=== PATIENT | female | born 2000 | race Caucasian/White ===

== ENCOUNTER 2022-10-04 15:53 | Observation (INO) | payer OTHER, SELFPAY ==
[2022-10-04] VITALS (9 sets, daily range): BP systolic 110–132; BP diastolic 70–92; PULSE 97–123; RESP 16–38; TEMP 36.6–37.1; O2SAT 94–100; BMI 29.3
--- NOTE | ~2022-10-04 | CT_ITS ---
EXAMINATION: CTA chest PE protocol DATE: 10/04/2022 17:37 INDICATION: Right-sided pleuritic chest pain, tachycardia and dyspnea TECHNIQUE: Computed tomography (CT) pulmonary angiogram of the chest was performed with 100 mL Omnipa que-350 intravenous contrast. Additional 3D reconstructions utilizing coronal maximum intensity proje ction (MIP) were performed. Automated exposure control and iterative reconstruction technique were em ployed. The dose-length product was 253.43 mGy-cm. COMPARISON: None FINDINGS: Excellent contrast opacification of the pulmonary arteries. There is mild streak and minimal respirat ory motion artifact yielding diagnostic quality study which demonstrates no pulmonary embolism. There multiple scattered bilateral subcentimeter pulmonary nodules, the largest measuring 8 mm in the left lower lobe, 7 mm in the lingula and with additional 6 mm nodules in the bilateral upper and lower lo bes. No pulmonary edema or pleural effusion. Heart size is normal. No pericardial effusion. Thoracic aorta is normal in caliber with no dissection. No pathologically enlarged thoracic lymphadenopathy. V isualized upper abdomen and bones are unremarkable. IMPRESSION: 1. No pulmonary embolism. 2. Multiple scattered bilateral pulmonary nodules the largest measuring up to 6-8 mm which given dina ent age are most likely infectious/inflammatory in etiology. Reviewed, dictated and finalized at location A. IMPRESSION: 1. No pulmonary embolism. 2. Multiple scattered bilateral pulmonary nodules the largest measuring up to 6 -8 mm which given patient age are most likely infectious/inflammatory in etiolo gy.
--- NOTE | 2022-10-04 16:33 | ECG_ITS ---
Measurements Intervals [place] Rate: 108 P: 58 WI: 134 QRS: 59 QRSD: 81 T: 50 QT: 309 QTc: 415 Interpretive Statements SINUS TACHYCARDIA ABNORMAL RHYTHM ECG NO PREVIOUS ECG AVAILABLE FOR COMPARISON Electronically Signed On 10-04-2022 22:19:28 CDT by Agnieszka Clancy M.D.
--- NOTE | 2022-10-04 16:34 | ED.SOB ---
HPI - SOB/Dyspnea General Chief Complaint: Shortness of Breath/Dyspnea Stated Complaint: dyspnea Time Seen by Provider: 10/04/22 16:06 History of Present Illness HPI Narrative: Patient is a 22-year-old female presenting with chest pain and dyspnea. Patient states that she woke from sleep yesterday with right-sided pleuritic chest pain. States that it feels difficult to take a big breath and when she does so she has severe pain in her right upper back that radiates to the left side. States that she has been very short of breath even with mild exertion. She denies recent travel, surgeries, hormone use. Denies leg swelling or prior DVT/PE. Denies lightheadedness, fevers, headache, abdominal pain, nausea or vomiting, diarrhea. Does report nasal congestion for several days. Related Data Allergies Allergy/AdvReac Type Severity Reaction Status Date / Time strawberry AdvReac Difficulty Verified 10/05/22 01:14 Swallowing vancomycin AdvReac Redness of Verified 10/04/22 23:55 Skin Review of Systems Review of Systems: All systems reviewed & are unremarkable except as noted in HPI and below PMFSH Surgical History Surgical History (Updated 10/05/22 @ 00:06 by Judy Villar NP) No pertinent past surgical history Family History Family History (Updated 10/04/22 @ 20:24 by Judy Villar NP) Father Heart disease Grandparent Cerebrovascular accident MDS (myelodysplastic syndrome) Social History Social History (Updated 10/05/22 @ 00:07 by Judy Villar NP) Social History: She lives with family. She works at [employer]. She is single and has no children Code status full code Smoking status: Never smoker Alcohol intake: never Substance use: never Substance use type: does not use Lack of Transportation: No Lack of Food: Never True Current Housing: I Have Housing Concerned About Future Housing: No Difficulty Paying Gas/Electric Bills: No Difficulty Paying for Meds: No Currently Unemployed: No Education: High School Diploma/GED Difficulty w/ Childcare or Family Care: No Spiritual care concerns: No Exam Narrative: GENERAL: Well-appearing, well-nourished, and in no acute distress. HEAD: Normocephalic, atraumatic. EYES: PERRLA and EOMI. ENT: Nares clear, no rhinorrhea or epistaxis. Mucous membranes moist. NECK: Supple. CHEST: Clear to auscultation. No respiratory distress. Mildly tachypneic HEART: Regular rate and rhythm. No murmur heard. Normal peripheral pulses. ABDOMEN: Soft, nontender, nondistended EXTREMITIES: Normal range of motion. No edema. SKIN: Warm, dry, no rash. NEURO: No focal deficits. Alert and oriented x3. PSYCH: Normal mood and affect. Course Vital Signs Vital signs: Vital Signs Temperature 98.7 F 10/04/22 15:55 Pulse Rate 123 H 10/04/22 15:55 Respiratory Rate 10/04/22 15:55 Blood Pressure 132/75 10/04/22 15:55 Pulse Oximetry 100 10/04/22 15:55 Oxygen Delivery Room Air 10/04/22 15:55 Temperature 96.6 F L 10/06/22 14:00 Pulse Rate 88 10/06/22 14:35 Respiratory Rate 20 10/06/22 14:35 Blood Pressure 108/65 10/06/22 14:00 Pulse Oximetry 99 10/06/22 14:24 Oxygen Delivery Room Air 10/06/22 14:24 MDM - SOB/Dyspnea MDM Narrative Medical decision making narrative: Patient is a 22-year-old female presenting with pleuritic chest pain and dyspnea. On arrival, patient is tachycardic in the 120s. Normotensive and saturating well on room air. Exam remarkable for the above. EKG per my interpretation shows sinus tachycardia, normal axis and intervals, no ST elevations or depressions. Blood work with leukocytosis. CT PE shows no evidence of pulmonary embolus but there are multiple pulmonary nodules concerning for infectious versus inflammatory processes. Patient is negative for COVID-19 and influenza. Patient has been covered with IV antibiotics. Fluids are ongoing. Unclear exactly what is causing t
[2022-10-04] MEDS: KETOROLAC 15 MG/ML VIAL (*BKC) IV PUSH (16:52)
[2022-10-04] MEDS: SODIUM CHLORIDE 0.9% IV 1,000 ML 999 ML IV CONT (16:53)
[2022-10-04 17:03] LABS: Basophils Percent Auto 0.3 % (0.2-1.2); Eosinophils Absolute Auto 0.1 K/mm3 (0-0.3); Hematocrit 39.8 % (37.0-47.0); Hemoglobin 13.4 g/dL (12.0-15.0); Immature Granulocyte Absolute 0.04 K/mm3 (0.00-0.031); Immature Granulocyte Percent A 0.3 % (0-0.5); Lymphocytes Absolute Auto 1.41 K/mm3 (0.9-3.2); Mean Corpuscular HGB Conc 33.7 g/dl (32-36); Mean Corpuscular Hemoglobin 28.2 pg (26-34); Mean Corpuscular Volume 83.6 fl (80-100); Mean Platelet Volume 9.7 fl (7.4-10.4); Monocytes Absolute Auto 0.8 K/mm3 (0.1-0.6); Monocytes Percent Auto 6.8 % (2.6-8.5); Neutrophils Absolute Auto 9.4 K/mm3 (1.3-6.7); Neutrophils Percent Auto 79.6 % (45.5-73.1); Platelet Count Result 276 k/mm3 (150-375); Red Blood Count 4.76 M/mm3 (4.2-5.4); Red Cell Distribution Width 13.2 % (11.5-14.5); White Blood Count 11.8 K/mm3 (4.5-10.0)
[2022-10-04 17:15] LABS: Alanine Aminotransferase 20 U/L (6-35); Albumin Level 4.6 g/dL (3.5-5.1); Alkaline Phosphatase 96 U/L (38-126); Anion Gap 10 mmol/L (8-16); Aspartate Amino Transferase 23 U/L (14-36); Bilirubin,Total 0.6 mg/dL (0.2-1.3); Blood Urea Nitrogen 11 mg/dL (7-17); Calcium 9.5 mg/dL (8.4-10.2); Carbon Dioxide 25 mmol/L (22-30); Chloride 103 mmol/L (98-107); Estimated Glomerular Filt Rate > 60; Glucose 100 mg/dL (65-110); Potassium 3.9 mmol/L (3.4-5.0); Sodium 138 mmol/L (137-145)
[2022-10-04 17:26] LABS: Troponin I < 0.012 ng/mL (0.000-0.034)
[2022-10-04 17:38] LABS: Influenza A QL RT-PCR Negative (Negative); Influenza B QL RT-PCR Negative (Negative); SARS-CoV-2 RNA PCR Negative
[2022-10-04] MEDS: HEIGHT NEEDED FOR VANCO DOSING 1 EACH XX (19:02)
--- NOTE | 2022-10-04 19:13 | PC.NURSE ---
Patient report given to BROOK Retana. All questions answered and care of patient transferred.
--- NOTE | 2022-10-04 20:22 | PM.IMHP ---
H&P: HPI History of Present Illness Date/Time: 10/04/22 20:22 Chief Complaint: Shortness of breath Narrative: This is a 22-year-old female patient who presented with chest pain and dyspnea. The patient states that she woke up from sleep yesterday with some right-sided pleuritic chest pain. The patient stated was difficult to take a deep breath and it was severe in nature. The patient is very short of breath with mild exertion. No recent surgeries or travel. No history of prior DVT or PE. White count 11.8. Lymphocytes 79.6. She was negative for influenza A/B and COVID. Chest CTA was read as a following 1. No pulmonary embolism. 2. Multiple scattered bilateral pulmonary nodules the largest measuring up to 6-8 mm which given patient age are most likely infectious/inflammatory in etiology. The patient was started on IV fluids, Toradol, Rocephin, and vancomycin. The patient developed red man syndrome and was given Benadryl. Her IV antibiotics were changed to Zosyn. The patient is being admitted to observation status on the date of service of 10/04/2022 Review of Systems Review of Systems: All systems reviewed & are unremarkable except as noted in HPI and below Constitutional: Constitutional: Reports as per HPI and Reports no additional constitutional complaints Eyes: Eyes: Reports as per HPI and Reports no additional eye complaints ENT: Reports system reviewed and no additional complaints, except as documented and Reports Normal hearing present Cardiovascular: Cardiovascular: Reports no additional cardiovascular complaints Respiratory: Respiratory: Reports no additional respiratory complaints and Reports no additional respiratory complaints Gastrointestinal: Gastrointestinal: Reports as per HPI and Reports no additional gastrointestinal complaints Musculoskeletal: Musculoskeletal: Reports no additional musculoskeletal complaints Integumentary/Breasts: Skin/Breast: Reports system reviewed and no additional complaints, except as docu and Reports as per HPI Neurologic: Reports system reviewed and no additional complaints, except as documented, Reports as per HPI and Reports Normal hearing present Psychiatric: Psychiatric: Reports no additional psychiatric complaints and Reports as per HPI Endocrine: Endocrine: Reports no additional endocrine complaints Hematologic/Lymphatic: Hematologic/Lymphatic: Reports no additional hematologic/lymphatic complaints Allergic/Immunologic: Allergic/Immunologic: Reports no additional allergic/immunologic complaints [facility] Surgical History Surgical History (Updated 10/05/22 @ 00:06 by Judy Villar NP) No pertinent past surgical history Family History Family History (Updated 10/04/22 @ 20:24 by Judy Villar NP) Father Heart disease Grandparent Cerebrovascular accident MDS (myelodysplastic syndrome) Social History Social History (Updated 10/05/22 @ 00:07 by Judy Villar NP) Social History: She lives with family. She works at [employer]. She is single and has no children Code status full code Smoking status: Never smoker Meds Home Medications and Allergies Home Medications Medication Instructions Recorded Confirmed Type No Home Medications 10/04/22 10/04/22 History Allergies Allergy/AdvReac Type Severity Reaction Status Date / Time vancomycin AdvReac Redness of Verified 10/04/22 23:55 Skin Vital Signs Vital Signs - 24 hr 10/04/22 15:55 10/04/22 16:45 10/04/22 16:46 Temperature 37.1 C Pulse Rate 123 H 115 H Respiratory Rate 20 38 H Blood Pressure 132/75 121/87 Pulse Oximetry 100 94 100 Oxygen Delivery Room Air 10/04/22 17:06 10/04/22 17:07 10/04/22 17:15 Temperature Pulse Rate 97 99 102 H Respiratory Rate 33 H 26 H 30 H Blood Pressure 114/81 Pulse Oximetry 100 100 100 Oxygen Delivery 10/04/22 17:16 10/04/22 17:00 Temperature Pulse Rate 98 Respiratory Rate 22 H Blood Pressure 110/92
[2022-10-04] MEDS: diphenhydrAMINE HCl INJ 50 MG/ML VIAL 25 MG IV PUSH (22:26)
[2022-10-05] VITALS (11 sets, daily range): BP systolic 98–118; BP diastolic 56–65; PULSE 74–110; RESP 14–20; TEMP 36.1–36.6; O2SAT 98–100
[2022-10-05] MEDS: PIPERACILLIN/TAZOBACTAM SOD 4.5 GM in SODIUM CHLORIDE 0.9% IV 100 ML 200 ML IVPB ×2 (01:29→05:27)
[2022-10-05] MEDS: IPRATROPIUM BR 0.02% INH SOLN 0.5 MG/2.5 ML VIAL INHALATION ×4 (03:19→19:23)
[2022-10-05] MEDS: LEVALBUTEROL NEB 1.25 MG/3 ML 0.63 MG INHALATION ×4 (03:19→19:23)
--- NOTE | 2022-10-05 03:20 | PC.NURSE ---
At 22:20 patient calls out and says her skin is red, hot and itchy. Upon entering room, patient face very red and flushed and upon assessment, patient's torso, arms, and legs also red. Judy Villar notified. New orders received for benadryl 25mg IV x1.
[2022-10-05 07:02] LABS: Basophils Percent Auto 0.2 % (0.2-1.2); Eosinophils Absolute Auto 0.1 K/mm3 (0-0.3); Eosinophils Percent Auto 0.9 % (0-4.4); Hematocrit 36.7 % (37.0-47.0); Immature Granulocyte Absolute 0.07 K/mm3 (0.00-0.031); Immature Granulocyte Percent A 0.5 % (0-0.5); Lymphocytes Absolute Auto 1.46 K/mm3 (0.9-3.2); Lymphocytes Percent Auto 11.4 % (18.3-44.2); Mean Corpuscular HGB Conc 32.7 g/dl (32-36); Mean Corpuscular Hemoglobin 27.9 pg (26-34); Mean Corpuscular Volume 85.3 fl (80-100); Mean Platelet Volume 9.9 fl (7.4-10.4); Monocytes Absolute Auto 0.8 K/mm3 (0.1-0.6); Monocytes Percent Auto 5.9 % (2.6-8.5); Neutrophils Absolute Auto 10.4 K/mm3 (1.3-6.7); Neutrophils Percent Auto 81.1 % (45.5-73.1); Platelet Count Result 255 k/mm3 (150-375); Red Cell Distribution Width 13.4 % (11.5-14.5); White Blood Count 12.9 K/mm3 (4.5-10.0)
[2022-10-05 07:26] LABS: Alanine Aminotransferase 17 U/L (6-35); Albumin Level 3.8 g/dL (3.5-5.1); Alkaline Phosphatase 78 U/L (38-126); Anion Gap 8 mmol/L (8-16); Aspartate Amino Transferase 23 U/L (14-36); Bilirubin,Total 0.8 mg/dL (0.2-1.3); Blood Urea Nitrogen 10 mg/dL (7-17); Calcium 8.5 mg/dL (8.4-10.2); Carbon Dioxide 23 mmol/L (22-30); Chloride 105 mmol/L (98-107); Estimated CRCL calculation 91 ml/min; Estimated Glomerular Filt Rate > 60; Glucose 104 mg/dL (65-110); Potassium 3.7 mmol/L (3.4-5.0); Sodium 136 mmol/L (137-145)
[2022-10-05] MEDS: FAMOTIDINE 20 MG/2 ML VIAL IV PUSH ×2 (08:25→20:17)
[2022-10-05] MEDS: ENOXAPARIN 40 MG/0.4 ML SYRINGE SUB-Q (08:25)
--- NOTE | 2022-10-05 10:20 | PM.IMPN ---
Progress Note: A&P Assessment and Plan (1) Pulmonary nodules: Code(s): R91.8 - Other nonspecific abnormal finding of lung field Status: Acute Assessment and Plan: Multiple scattered bilateral pulmonary nodules concerning for infectious versus inflammatory etiology, started on Zosyn 10/04, will switch to levaquin 10/05 for atypical coverage MRSA swab pending Check PCT/CRP 10/05 Send antigens for pneum/mycoplasma Appreciate pulmonology consultation Echo ordered and pending from admission Plan DVT prophylaxis with SCDs GI prophylaxis not indicated Code status full code Subjective Date/time seen: 10/05/22 10:20 Interval history: 22-year-old female with chest pain and dyspnea found to have scattered bilateral pulmonary nodules concerning for infectious versus inflammatory etiology, started on antibiotics. No overnight events noted. No chest pain or shortness of breath. No nausea, vomiting or diarrhea. No fevers or chills. Review of Systems Review of Systems: 12 point review of systems was assessed and was negative except as noted in the HPI Exam Narrative: General: No acute distress, alert and oriented per baseline HEENT: Atraumatic, normocephalic, mucous membranes moist CV: Regular rate and rhythm, S1, S2 Lungs: Clear to auscultation bilaterally, no rales or crackles noted, no wheezes, good air entry Abdomen: Soft, nontender, nondistended Extremities: Normal to inspection Skin: No rashes noted, no lesions or wounds seen Psych: Euthymic, normal affect Objective Data Vital Signs Vital Signs: Vital Signs - 24 hr 10/04/22 15:55 10/04/22 16:45 10/04/22 16:46 Temperature 98.7 F Pulse Rate 123 H 115 H Respiratory Rate 20 38 H Blood Pressure 132/75 121/87 Pulse Oximetry 100 94 100 Oxygen Delivery Room Air 10/04/22 17:06 10/04/22 17:07 10/04/22 17:15 Temperature Pulse Rate 97 99 102 H Respiratory Rate 33 H 26 H 30 H Blood Pressure 114/81 Pulse Oximetry 100 100 100 Oxygen Delivery 10/04/22 17:16 10/04/22 17:00 10/04/22 21:20 Temperature 97.8 F Pulse Rate 98 102 H Respiratory Rate 22 H 16 Blood Pressure 110/92 H 120/70 Pulse Oximetry 100 99 Oxygen Delivery Room Air 10/04/22 21:35 10/05/22 03:34 10/05/22 03:35 Temperature Pulse Rate 102 H 110 H 110 H Respiratory Rate 16 20 20 Blood Pressure Pulse Oximetry 99 98 Oxygen Delivery Room Air Room Air 10/05/22 05:20 10/05/22 08:41 10/05/22 08:42 Temperature 97.2 F L Pulse Rate 106 H 94 Respiratory Rate 14 18 Blood Pressure 98/56 L Pulse Oximetry 99 99 Oxygen Delivery Room Air 10/05/22 08:50 10/05/22 08:00 Temperature Pulse Rate 97 Respiratory Rate 18 Blood Pressure Pulse Oximetry Oxygen Delivery Room Air Intake/Output Intake/Output: Intake & Output 10/02/22 10/03/22 10/04/22 10/05/22 23:59 23:59 23:59 23:59 Intake Total 1050 500 Output Total 200 Balance 1050 300 Meds/Results Medications: Active Medications Generic Name Dose Route Start Last Admin Trade Name Freq PRN Reason Stop Dose Admin Diphenhydramine HCl 25 mg 10/04/22 23:58 Diphenhydramine Hcl Inj 50 Mg/Ml Vial IV PUSH Q4H PRN Itching Enoxaparin Sodium 40 mg 10/05/22 09:00 10/05/22 08:25 Enoxaparin 40 Mg/0.4 Ml Syringe SUB-Q 40 mg DAILY DINORA Administration Famotidine 20 mg 10/05/22 09:00 10/05/22 08:25 Famotidine 20 Mg/2 Ml Vial IV PUSH 20 mg Q12HR DINORA Administration Piperacillin Sod/Tazobactam 100 mls @ 200 mls/hr 10/05/22 00:00 10/05/22 05:57 Sod 4.5 gm/ Sodium Chloride IVPB Infused Q6H DINORA Infusion Ipratropium [place] 0.5 mg 10/05/22 02:00 10/05/22 08:38 Ipratropium Br 0.02% Inh Soln 0.5 Mg/2.5 Ml Vial INHALATION 0.5 mg Q6HRT DINORA Administration Levalbuterol HCl 0.63 mg 10/05/22 02:00 10/05/22 08:38 Levalbuterol Neb 1.25 Mg/3 Ml INHALATION 0.63 mg Q6HRT DINORA Administration Perflutren L
[2022-10-05 11:03] LABS: Procalcitonin 0.1 ng/mL
--- NOTE | 2022-10-05 14:54 | PCRCNOTE ---
Pt family is asking RT what could cause the infectious nodules in the lungs. RT asked what kind of animals pt lives around and found out that she sleeps on the floor of her room, level with a litter box. Pt stated that she has dogs and 2 lizards in the house as well.
--- NOTE | 2022-10-05 15:05 | PCRCNOTE ---
pt also states that her and her room mate found mold in the closet that they keep their towels for drying off with and that her cats frequently go into the closet.
--- NOTE | 2022-10-05 16:43 | PM.CNPUL ---
Assessment and Plan Assessment and plan (1) Pulmonary nodules: Code(s): R91.8 - Other nonspecific abnormal finding of lung field Status: Acute Assessment and Plan: She has the acute onset of shortness of breath and pleuritic chest discomfort with multiple small pulmonary nodules on chest CT, and no history that narrows the differential. She is healthy, no immunocompromising conditions, no HIV risk factors, no travel or exposures. This is most likely infectious, very unlikely to be autoimmune as she has no symptoms to suggest SLE, vasculitis, has no sinus symptoms at all. She received Zosyn and Vanco, switched to ceftriaxone and levofloxacin which is adequate for coverage for community acquired pneumonia. Nodular infiltrates can be seen in fungal and mycobacterial illness. I am sending sputum for fungal and AFB; she does not need to be in a negative flow room. She does not have anything that is consistent with TB so don't order isolation and change of the room, please. Also sending a urine for histoplasmosis, blood for quantiferonGOLD, and repeat CXR at some point. We may not have a definitive diagnosis before diagnosis, however she does not have to have a specific diagnosis before going home. She is on room air, feeling better with nebulized treatments, and is now able to expectorate sputum. Sputum will go for lab analysis in the am. History of Present Illness History of Present Illness Consult date: 10/05/22 Requesting physician: Judy Villar NP Chief complaint: pulmonary nodules Narrative: Her mother Guerda was present during the visit. Patient was seen at 17:10. NEW CONSULT: Sandra Oneal is a 22-year-old female admitted with shortness of breath and difficulty taking a deep breath with chest discomfort mainly on the right side of her chest. This started when she woke on Thursday morning 10/03, unable to take a deep breath, and had right sided chest pain. She went to work at [employer] and was short of breath with her normal activities. She had to stop and rest during her work activities. She did not have any sputum production, sore throat, nasal congestion, hemoptysis, fever or wheezing. She lives with cousins during the week and on weekends she returns to her mother's house. Her cousins have several animals including a couple of 2 to 3 cats and dogs, a turtle and a leopard gecko. She has no exposure to pets other than cats and dogs. The patient has not had any exposure to fowl, no chickens or other birds. She does not have exposure to moist soil, does not did for mushrooms, does not have exposure to wet basement or other wet environments. She has not had any travel. She has not left the area for years. She does not smoke vape or use any recreational substances. She does not have any hobbies that expose her to vapors, fumes, volatile substances or feathers. She has not been camping or hunting, has no exposure to [place] water. She has not had exposure to anyone sick. She has no HIV risk factors, is not sexually active. CTA 10/04 shows many small pulmonary nodules, no pulmonary embolus. She has patent pulmonary arteries. She has no chronic medical conditions. She does not have any respiratory history and rarely if ever gets sick. She had COVID 3 times, was never sick enough for hospital care, and had the last episode over a year ago. She did not have any residual problems. She has a grandfather who took medicines for TB years ago. DATA * 10/04/22 CTA ; No pulmonary embolism. Multiple scattered bilateral pulmonary nodules the largest measuring up to 6-8 mm which given patient age are most likely infectious/inflammatory in etiology. * normal H/H, Na+ 138 and today 136; BUN and creat normal. Normal platelets. WBC 11.8 with 79% segs. * influenza A and B, COVID are all negative. Review of Systems Review of Systems: She has not h
[2022-10-06] VITALS (11 sets, daily range): BP systolic 102–108; BP diastolic 65–68; PULSE 80–119; RESP 17–20; TEMP 35.9–36.3; O2SAT 98–100
--- NOTE | 2022-10-06 | ECHO_ITS ---
Patient Info Name: Sandra Oneal Age: 22 years : 2000 Gender: Female Ht: 65 in Wt: 176 lbs BSA: 1.94 m2 HR: 96 bpm BP: 102 / 68 mmHg Technical Quality: Fair Exam Date: 10/06/2022 11:21 AM Exam Location: [facility] Pulmonary Exam Room: 310 Patient Status: Outpatient Admit Date: 10/04/2022 Staff Ordering Physician: Judy Villar NP Cell Changer: Marcia Adame RDCS Attending Provider: Pradeep Guillen MD Referring Physician: Aurea GERMAN; Exam Type: CA echo doppler color flow Study Info Indications - pulmonary nodule chest pain Complete two-dimensional, color flow and Doppler transthoracic echocardiogram is performed. Summary 1. Complete two-dimensional, color flow and Doppler transthoracic echocardiogram is performed. 2. Left ventricular chamber dimension is normal. 3. Left ventricular systolic function is normal, estimated at 60-65%. 4. The left ventricular diastolic function is normal. 5. E/e' 5 is not elevated. 6. No pulmonary hypertension, estimated pulmonary arterial systolic pressure is 25 mmHg. Left Ventricle E/e' 5 is not elevated. Left ventricular chamber dimension is normal. Left ventricular systolic function is normal, estimated at 60-65%. The left ventricular diastolic function is normal. Right Ventricle Right ventricular chamber dimension is normal. Right ventricular systolic function is normal. Left Atria Left atrial chamber dimension is normal. Right Atria Right atrial chamber dimension is normal. Aortic Valve The aortic valve is trileaflet. There is no aortic valve stenosis. There is no aortic valve regurgitation. Pulmonic Valve There is no pulmonic regurgitation. Mitral Valve There is no mitral valve stenosis. There is no mitral valve regurgitation. Tricuspid Valve There is no tricuspid valve regurgitation. No pulmonary hypertension, estimated pulmonary arterial systolic pressure is 25 mmHg. Pericardium/Pleural There is no pericardial effusion. Inferior Vena Cava Normal inferior vena cava with >50% collapse upon inspiration consistent with normal right atrial pressure, 5 mmHg. Aorta The aortic root size at the sinus of Valsalva is normal. Left Ventricular Outflow Tract Name Value Normal LVOT 2D LVOT Diameter 2.0 cm LVOT Doppler LVOT Peak Gradient 7 mmHg LVOT Mean Gradient 3 mmHg LVOT VTI 21 cm LVOT VTI/AV VTI Ratio 0.7 LVOT Stroke Volume 64 ml Pulmonic Valve Name Value Normal PV Doppler PV Peak Gradient 5 mmHg Mitral Valve Name Value Normal
[2022-10-06 06:29] LABS: Basophils Percent Auto 0.2 % (0.2-1.2); Eosinophils Absolute Auto 0.2 K/mm3 (0-0.3); Eosinophils Percent Auto 1.9 % (0-4.4); Hematocrit 34.2 % (37.0-47.0); Immature Granulocyte Absolute 0.04 K/mm3 (0.00-0.031); Immature Granulocyte Percent A 0.4 % (0-0.5); Lymphocytes Absolute Auto 2.65 K/mm3 (0.9-3.2); Lymphocytes Percent Auto 29.3 % (18.3-44.2); Mean Corpuscular HGB Conc 32.2 g/dl (32-36); Mean Corpuscular Hemoglobin 27.8 pg (26-34); Mean Corpuscular Volume 86.4 fl (80-100); Mean Platelet Volume 9.3 fl (7.4-10.4); Monocytes Absolute Auto 0.7 K/mm3 (0.1-0.6); Monocytes Percent Auto 7.8 % (2.6-8.5); Neutrophils Absolute Auto 5.5 K/mm3 (1.3-6.7); Neutrophils Percent Auto 60.4 % (45.5-73.1); Platelet Count Result 231 k/mm3 (150-375); Red Blood Count 3.96 M/mm3 (4.2-5.4); Red Cell Distribution Width 13.4 % (11.5-14.5); White Blood Count 9.1 K/mm3 (4.5-10.0)
[2022-10-06 06:36] LABS: Alanine Aminotransferase 16 U/L (6-35); Albumin Level 3.8 g/dL (3.5-5.1); Alkaline Phosphatase 73 U/L (38-126); Anion Gap 7 mmol/L (8-16); Aspartate Amino Transferase 21 U/L (14-36); Bilirubin,Total 0.5 mg/dL (0.2-1.3); Blood Urea Nitrogen 10 mg/dL (7-17); Calcium 8.5 mg/dL (8.4-10.2); Carbon Dioxide 25 mmol/L (22-30); Chloride 105 mmol/L (98-107); Estimated CRCL calculation 102 ml/min; Estimated Glomerular Filt Rate > 60; Glucose 95 mg/dL (65-110); Potassium 3.8 mmol/L (3.4-5.0); Sodium 137 mmol/L (137-145)
[2022-10-06] MEDS: LEVALBUTEROL NEB 1.25 MG/3 ML 0.63 MG INHALATION ×2 (08:26→14:21)
[2022-10-06] MEDS: IPRATROPIUM BR 0.02% INH SOLN 0.5 MG/2.5 ML VIAL INHALATION ×2 (08:26→14:22)
[2022-10-06] MEDS: FAMOTIDINE 20 MG/2 ML VIAL IV PUSH (09:03)
[2022-10-06] MEDS: ENOXAPARIN 40 MG/0.4 ML SYRINGE SUB-Q (09:03)
--- NOTE | 2022-10-06 11:09 | PM.PNPUL ---
Progress Note: A&P Assessment and Plan (1) Pulmonary nodules: Code(s): R91.8 - Other nonspecific abnormal finding of lung field Status: Acute Assessment and Plan: She has the acute onset of shortness of breath and pleuritic chest discomfort with multiple small pulmonary nodules on chest CT, and no history that narrows the differential. She is healthy, no immunocompromising conditions, no HIV risk factors, no travel or exposures. This is most likely infectious, very unlikely to be autoimmune as she has no symptoms to suggest SLE, vasculitis, has no sinus symptoms at all. She received Zosyn and Vanco, switched to ceftriaxone and levofloxacin which is adequate for coverage for community acquired pneumonia. Nodular infiltrates can be seen in fungal and mycobacterial illness. She no longer has sputum to send for fungal and AFB studies. Also sending a urine for histoplasmosis, blood for quantiferonGOLD, and repeat CXR at some point. We do not have a definitive diagnosis, and is stable for discharge. Echo results pending, completed this am. She is on room air, feeling better with nebulized treatments, no sputum. OK for discharge, f/u in our office in 2 weeks d/w Dr Freeman. Symbicort 160/4.5 Two puffs BID. Subjective Date/time seen: 10/06/22 11:09 Interval history: ESTABLISHED: Hospital day 2 ; Sandra Oneal is a 22-year-old female admitted with shortness of breath and difficulty taking a deep breath with chest discomfort mainly on the right side of her chest. ? This started when she woke on Thursday morning 10/03, unable to take a deep breath, and had right sided chest pain.? She went to work at [employer] and was short of breath with her normal activities.? She had to stop and rest during her work activities.? She did not have any sputum production, sore throat, nasal congestion, hemoptysis, fever or wheezing. ? She lives with cousins during the week and on weekends she returns to her mother's house.? Her cousins have several animals including a couple of 2 to 3 cats and dogs, a turtle and a leopard gecko.? She has no exposure to pets other than cats and dogs.? The patient has not had any exposure to fowl, no chickens or other birds.? She does not have exposure to moist soil, does not did for mushrooms, does not have exposure to wet basement or other wet environments.? She has not had any travel.? She has not left the area for years.? She does not smoke vape or use any recreational substances.? She does not have any hobbies that expose her to vapors, fumes, volatile substances or feathers. She has not been camping or hunting, has no exposure to [place] water.? She has not had exposure to anyone sick.? She has no HIV risk factors, is not sexually active. CTA 10/04 shows many small pulmonary nodules, no pulmonary embolus.? She has patent pulmonary arteries. She has no chronic medical conditions.? She does not have any respiratory history and rarely if ever gets sick.? She had COVID 3 times, was never sick enough for hospital care, and had the last episode over a year ago.? She did not have any residual problems. She has a grandfather who took medicines for TB years ago. 4.17.23 - Mother is at the bedside. Patient feels stable and wants to go home. She is on room air. No sputum today. She has orders for sputum studies, nothing to submit. She had an echocardiogram this morning. We do not have results on numerous serologies, and this will not keep her from going home. I spoke with the patient and her mother about the plan which will be home oxygen evaluation before leaving, follow-up in our office within 1-2 weeks and I gave them the phone number. She has small pulmonary nodules and this by itself is not a reason to for her to stay in the hospital. Her immediate reason for coming in to the hospital, shortness of breath and chest tightness, has resolved. We will
--- NOTE | 2022-10-06 13:48 | PCRCNOTE ---
Home O2 eval completed, no home O2 needed.
--- NOTE | 2022-10-06 14:02 | PM.DS ---
DS: Admitting Diagnosis Discharge Date 10/06/2022 Admitting Diagnosis Shortness of breath DS: Discharge Diagnosis Discharge Diagnosis (1) Pulmonary nodules: Code(s): R91.8 - Other nonspecific abnormal finding of lung field Status: Acute Assessment and Plan: Multiple scattered bilateral pulmonary nodules concerning for infectious versus inflammatory etiology, started on Zosyn 10/04, will switch to levaquin 16 for atypical coverage Pt seen by pulmonology ok to DC on symbicort pt passed walk study prior to DC does not need oxygen at home Pt to follow in pulmonology clinic DS: Summary Hospital Course Hospital Course: 22-year-old female patient who presented with chest pain and dyspnea.? The patient states that she woke up from sleep yesterday with some right-sided pleuritic chest pain.? The patient stated was difficult to take a deep breath and it was severe in nature.? The patient is very short of breath with mild exertion.? No recent surgeries or travel.? No history of prior DVT or PE.? White count 11.8.? Lymphocytes 79.6.? She was negative for influenza A/B and COVID.? Chest CTA was read as a following?1. No pulmonary embolism. 2. Multiple scattered bilateral pulmonary nodules the largest measuring up to 6-8 mm which given patient age are most likely infectious/inflammatory in etiology. The patient was started on IV fluids, Toradol, Rocephin, and vancomycin.? The patient developed red man syndrome and was given Benadryl.? Her IV antibiotics were changed to Zosyn.? The patient is being admitted to observation status on the date of service of 10/04/2022. Pt started on Zosyn 10/04, will switch to levaquin 16 for atypical coverage Pt seen by pulmonology ok to DC on symbicort pt passed walk study prior to DC does not need oxygen at home Pt to follow in pulmonology clinic Time Spent with Patient Time attestation: Total time spent providing and/or coordinating discharge services: 40 minutes on day of dc Exam Narrative: General: No acute distress, alert and oriented per baseline HEENT: Atraumatic, normocephalic, mucous membranes moist CV: Regular rate and rhythm, S1, S2 Lungs: Clear to auscultation bilaterally, no rales or crackles noted, no wheezes, good air entry Abdomen: Soft, nontender, nondistended Extremities: Normal to inspection Skin: No rashes noted, no lesions or wounds seen Psych: Euthymic, normal affect Const: Other: General:? No acute distress, alert and oriented per baseline HEENT:? Atraumatic, normocephalic, mucous membranes moist CV:? Regular rate and rhythm, S1, S2 Lungs:? Clear to auscultation bilaterally, no rales or crackles noted, no wheezes, good air entry Abdomen:? Soft, nontender, nondistended Extremities:? Normal to inspection Skin:? No rashes noted, no lesions or wounds seen Psych:? Euthymic, normal affect DS: Data Data Completed and Pending Labs on day of discharge: Labs from last 24 hours 10/06/22 10/06/22 10/06/22 10:11 10:11 10:11 WBC RBC Hgb Hct MCV MCH MCHC RDW Plt Count MPV Immature Gran % (Auto) Neut % (Auto) Lymph % (Auto) [place] % (Auto) Eos % (Auto) Baso % (Auto) Lymph # (Auto) [place] # (Auto) Eos # (Auto) Baso # (Auto) Abs Immat Gran (auto) Absolute Neuts (auto) Absolute Nucleated RBC Nucleated RBC % Sodium Potassium Chloride Carbon Dioxide Anion Gap BUN Creatinine Estim Creat Clear Calc Estimated GFR Glucose Calcium Total Bilirubin AST ALT Alkaline Phosphatase Total Protein Albumin Urine Histoplasma Ag Pending Legionella Culture Pending Ur L.pneumophila Ag Pending Urine Pneumococcal Ag TB Test (QFT) Gold Plus TB Test (QFT) Nil TB Test Mitogen - Nil TB Test Ag - Nil 1 TB Test Ag - Nil 2 10/06/22 10/06/22 10/06/22 06:15 06:15 06:15 WBC 9.1 RBC 3.96 L Hgb 11.
[2022-10-08 16:43] LABS: NIL 0.01 IU/mL; Quantiferon TB Plus, 1T NEGATIVE (NEGATIVE); TB1-NIL 0.06 IU/mL
[2022-10-08 21:02] LABS: Pneumococcal Antigen Urine Not Detected (Not Detected)
[2022-10-10 00:06] LABS: Legionella pneumophila Ag Ur Not Detected (Not Detected)
== END 2022-10-06 14:01 | disposition home or self-care (01) ==
LOC: ANHED 16:24 → ANH3MEDSUR 10-05 22:11
PROVIDERS: Internal Medicine Critical Care Medicine; Nurse Practitioner; Student in an Organized Health Care Education/Training Program; Admitting Provider Family Medicine; Emergency Provider Emergency Medicine; PCP Pediatrics Adolescent Medicine; Visit Provider Family Medicine
DX: R91.8 Other nonspecific abnormal finding of lung field (principal); R00.0 Tachycardia, unspecified; R07.81 Pleurodynia; R06.00 Dyspnea, unspecified; M54.9 Dorsalgia, unspecified; Z20.822 Contact with and (suspected) exposure to COVID-19; D72.829 Elevated white blood cell count, unspecified; R94.31 Abnormal electrocardiogram [ECG] [EKG]; Z86.16 Personal history of COVID-19
CPT/HCPCS: 36415; 71275; 80053; 81025; 83735; 84145; 84443; 84484; 85025; 86140; 86480; 87040; 87081; 87385; 87449; 87636; 87899; 93005; 93306; 94618; 94640; 96361; 96365; 96367; 96372; 96375; 96376; 99285; G0378; J0696; J1200; J1650; J1885; J1956; J2543; J3370; J7030; Q9967

== ENCOUNTER 2025-03-24 23:29 | Emergency (ER) | payer OTHER, SELFPAY ==
[2025-03-24 23:31] VITALS: BP 138/88; PULSE 99; RESP 18; TEMP 36.4; O2SAT 99
--- OUTSIDE RECORDS SUMMARY | 2025-03-24 23:32 | XMS_ITS | Clinical Summary ---
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 Gender Identity Not on file Sexual Orientation Not on file Plan of Treatment Health Maintenance Due Date Last Done Comments Hepatitis C Virus (HCV) Screening 2002 TdaP Immunization 2002 Human Papillomavirus (HPV) Immunization (1 - 3-dose series) 2017 Meningococcal B Immunization (1 of 2 - Standard) 2018 Hepatitis B Immunization (1 of 3 - 19+ 3-dose series) 2021 Influenza Immunization (#1) 2025 SARS-COV-2 Immunization (2 - 2024- season) 2025 11/13/2020 Respiratory Syncytial Virus (RSV) Immunization (Adult) (1 - 1-dose 75+ series) 2077 Meningococcal Immunization (ACWY) Aged Out No longer eligible based on patient's age to complete this topic Pneumococcal Immunization Combined Aged Out No longer eligible based on patient's age to complete this topic Rotavirus Immunization Aged Out No lo nger eligible based on patient's age to complete this topic
--- NOTE | 2025-03-25 00:55 | ED_ITS ---
HPI - Headache General Chief Complaint: Headache Stated Complaint: headache Time Seen by Provider: 03/25/25 00:52 Source: patient and family (Boyfriend) Mode of arrival: ambulatory Limitations: no limitations History of Present Illness HPI Narrative: 24-year-old female presents with a headache of 2 days duration. She describes it as a frontal headache but also feels like her scalp is hyper sensitive to pain as she will sometimes experience pain on the sides of her head particularly depending on which side she lays on. She took 1 tablet of Tylenol without relief. She does not know if it was 320 mg per 500 mg strength. She states that she is 18 weeks . She cannot recall her last menstrual period but her estimated due date is 08/23/2025. She is currently seeing wood chopper through [facility] [place], not one doctor/provider in particular yet. She reports that her headache started around the time her 14 lb cat jumped on her face and she does have a scratch under her left naris above her left lip. She denies any visual changes including no blurred or double vision. No fevers or chills. Resides with her boyfriend is not having similar symptoms. She denies any photophobia although she does have some phonophobia which she did not particularly noticed until she was in the emergency department waiting room to round other loud patients. She denies any trauma. Not on anticoagulation. Does not routinely get significant headaches, no diagnoses of headache related issues. She denies any dizziness. No unilateral symptoms involving her arms or legs or face. She denies any nausea or vomiting. Related Data Allergies Allergy/AdvReac Type Severity Reaction Status Date / Time strawberry AdvReac Difficulty Verified 03/24/25 23:34 Swallowing vancomycin AdvReac Redness of Verified 03/24/25 23:34 Skin PMFSH Past Medical History Medical History History of multiple pulmonary nodules Surgical History Surgical History No pertinent past surgical history Family History Family History Father Heart disease Grandparent Cerebrovascular accident MDS (myelodysplastic syndrome) Social History Social History Social History: She has a boyfriend and has no children Code status full code Smoking status: Never smoker Alcohol intake: never Substance use: never Substance use type: does not use Lack of Transportation: No Lack of Food: Never True Current Housing: I Have Housing Concerned About Future Housing: No Difficulty Paying Gas/Electric Bills: No Difficulty Paying for Meds: No Currently Unemployed: No Education: High School Diploma/GED Difficulty w/ Childcare or Family Care: No Living arrangements: with family Occupation/Education: occupation Additional occupation/education comments: works at [employer]. Spiritual care concerns: No Exam 2 Narrative: GENERAL: Well-appearing, well-nourished, and in no acute distress. HEAD: Normocephalic, atraumatic. EYES: Non injected, non icteric. PERRL. No gaze palsy. No photophobia. ENT: Nares clear, no rhinorrhea or epistaxis. Gross auditory acuity intact. NECK: Supple. No meningismus. CHEST: Speaking in full sentences. No respiratory distress. HEART: Regular rate and rhythm. . ABDOMEN: Soft, nondistended. No rigidity or guarding. Not peritoneal EXTREMITIES: Normal range of motion. Moving extremities x4. SKIN: Warm, dry. Superficial linear laceration above left upper lip and below left nose/naris, well healing. No surrounding/spreading erythema, no purulent drainage NEURO: No focal deficits. Alert and oriented. Answering questions. Following commands. Normal speech without aphasia or dysarthria. PSYCH: Normal mood and affect. Course Vital Signs Vital signs: Vital Signs Temperature 97.5 F L 03/24/25 23:31 Pulse Rate 99 03/24/25 23:31 Respiratory Rate 18 03/24/25 23:31 Blood Pressure 138/88 03/24/25 23:31 Pulse Oximetry 99 03/24/25 23:31 Oxygen Delivery Room Air 03/24/25 23:31 Temperature 97.9 F 03/25/25 03:17 Pulse Rate 85 03/25/25 03:17 Respiratory Rate 16 03/25/25 03:17 Blood Pressure 132/73 03/25/25 03:17 Pulse Oximetry 100 03/25/25 03:17 Oxygen Delivery Room Air 03/24/25 23:31 MDM - Headache MDM Narrative Medical decision making narrative: This is a 24yo female at 18w3d GA by stated HERMINIA 08/23/25 who presents with concern for a 2 day headache. After obtaining the patient's history and performing a physical exam, the headache is most likely due to benign etiology. The neurological examination is non-focal, there are no high-risk features on history, vital signs are within normal limits, and the patient is non-toxic appearing. The Ddx for the patient's headache is tension headache, migraine, or other headache of non-emergent etiology. The differential diagnosis for headache in the period also Includes but is not limited to: Preeclampsia, AVIATION SAFETY EQUIPMENT TECHNICIAN infection, subarachnoid hemorrhage (SAH), intracranial hemorrhage (ICH), vasculitis, cerebral venous sinus thrombosis, carotid or vertebral artery dissection, ischemic stroke, pituitary apoplexy. Unlikely SAH: headache is non-thunderclap. Headache is mild Unlikely subdural/epidural hematoma: no history of trauma, no anticoagulation Unlikely meningitis: afebrile, no meningismus, no photophobia Unlikely temporal arteritis: pt <60 years old. Unlikely acute angle glaucoma: PERRL, no eye pain Unlikely carbon monoxide poisoning: no other house members with similar symptoms Also considered effects of recent cat scratch but does not appear infected, healing well. Discussed with patient that it is reasonable to defer CT imaging given risks outweigh the benefits as low pretest probability for intracrnial pathology. She verifies understanding, in agreement. We discussed that ketorolac in <20weeks GA is category C, also compazine. Risks/benefits discussed; patient amenable to proceeding with a one time dose. The patient's headache was treated symptomatically with IV fluids, ketorolac, benadryl, compazine; magnesium. Urinalysis with bacteriuria. It does appear to be contaminated with squamous cells but there other abnormalities as well. However, no proteinuria. Given she is , urine culture is ordered and we will treat. Leukocytosis and a normocytic anemia, the latter stable from previous. Magnesium normal. Mild hyponatremia and an isolated ALT elevation. Pain is 2/10 per RN. Stable for DC. She will be discharged with strict return precautions and instructions to follow up with their PCP in the next 1-2 days as well as continue Ob care. She is prescribed acetaminophen advised/reiterated this is safe to take during . Also provided rest of course of antibiotic for bacteriuria during . Lab Data Attestation: I reviewed the patient's lab results. 03/25/25 01:56 03/25/25 01:56 Labs: Lab Results 03/25/25 03/25/25 Range/Units 01:02 01:56 WBC 12.6 H (4.5-10.0) K/mm3 RBC 4.34 (4.2-5.4) M/mm3 Hgb 11.5 L (12.0-15.0) g/dL Hct 35.6 L (37.0-47.0) % MCV 82.0 (80-100) fl MCH 26.5 (26-34) pg MCHC 32.3 (32-36) g/dl RDW 15.4 H (11.5-14.5) % Plt Count 272 (150-375) k/mm3 MPV 9.8 (7.4-10.4) fl Immature Gran % (Auto) 1.2 H (0-0.5) % Neut % (Auto) 65.4 (45.5-73.1) % Lymph % (Auto) 25.2 (18.3-44.2) % [place] % (Auto) 7.0 (2.6-8.5) % Eos % (Auto) 1.0 (0-4.4) % Baso % (Auto) 0.2 (0.2-1.2) % Lymph # (Auto) 3.18 (0.9-3.2) K/mm3 [place] # (Auto) 0.9 H (0.1-0.6) K/mm3 Eos # (Auto) 0.1 (0-0.3) K/mm3 Baso # (Auto) 0.0 (0.0-0.1) K/mm3 Abs Immat Gran (auto) 0.15 H (0.00-0.031) K/mm3 Absolute Neuts (auto) 8.3 H (1.3-6.7) K/mm3 Absolute Nucleated RBC 0.000 (0.0-0.012) K/mm3 Nucleated RBC % 0.0 (0.0-0.2) % Sodium 133 L (137-145) mmol/L Potassium 3.7 (3.4-5.0) mmol/L Chloride 102 (98-107) mmol/L Carbon Dioxide 23 (22-30) mmol/L Anion Gap 8 (4-12) mmol/L BUN 7 (7-17) mg/dL Creatinine 0.59 L (0.7-1.0) mg/dL Estim Creat Clear Calc 148 ml/min Estimated GFR > 60 (59 - ) Glucose 97 (65-110) mg/dL Calcium 9.5 (8.4-10.2) mg/dL Magnesium 2.0 (1.6-2.3) mg/dL Total Bilirubin 0.2 (0.2-1.3) mg/dL AST 35 (14-36) U/L ALT 53 H (6-35) U/L Alkaline Phosphatase 89 (38-126) U/L Total Protein 8.0 (6.3-8.2) g/dL Albumin 4.1 (3.5-5.1) g/dL Urine Color Yellow (Yellow) Urine Appearance Cloudy H (Clear) Urine pH 6.0 (5.0-9.0) Ur Specific Umbarger 1.018 (1.001-1.035) Urine Protein Trace (Negative) mg/dL Urine Glucose (UA) 1+ H (Negative) mg/dL Urine Ketones Negative (Negative) mg/dL Ur Blood (Man) Negative (Negative) Urine Nitrate Negative (Negative) Urine Bilirubin Negative (Negative) Urine Urobilinogen 0.2 (<2.0) mg/dL Add Ur Microanalysis Reviewed Leukocyte Esterase Rfl Trace H (Negative) NOAH/UL Urine RBC 6-10 H (0-2) /hpf Urine WBC 6-10 H (0-3) /hpf Ur Squamous Epith Cells Many H (Few) /hpf Urine Bacteria 1+ H /hpf Urine Casts 0-2 Discharge Plan Discharge Clinical Impression: Bacteriuria during , Leukocytosis, Normocytic anemia, Hyponatremia, Elevated ALT measurement Headache in Qualifiers: Trimester: second trimester Qualified Code(s): O26.892 - Other specified related conditions, second trimester Patient Disposition: Home Condition: Stable Instructions: Antibiotic Form, Urinary Tract Infection in (ED), General Headache (ED), at 15 to 18 Weeks (ED) Additional Instructions: You have bacteria in your urine and we treat this during . You received your 1st dose of antibiotic in the emergency department the rest of the course as prescribed. Follow-up with primary care physician. Keep all upcoming appointments with your Tractor Operator Battery. Return to the ED if new/worsening symptoms. Acetaminophen/Tylenol (maximum 4000 mg per day) is safe to take during . Patient Language: [place] Island[place] Prescriptions: New cephalexin 500 mg tablet 500 mg PO Q8H 5 Days Qty: 15 0RF acetaminophen 500 mg capsule 1,000 mg PO Q6H PRN (Reason: pain) Qty: 30 0RF Follow-up/Referrals: [facility] [Provider Group] Amarilis,Zuleima Calzada MD [Non-Staff] Stand Alone Forms: Work/School Release IP Time of Disposition: 02:56
--- OUTSIDE RECORDS SUMMARY | 2025-03-25 01:07 | XMS_ITS | Clinical Summary ---
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
[2025-03-25 01:46] LABS: Add Urine Microscopic? YES; Appearance Urine Cloudy (Clear); Glucose Urine UA 1+ mg/dL (Negative); Leukocyte Esterase Ur Trace LEU/UL (Negative); Need Manual Microscopic Reviewed; Nitrate Urine Negative (Negative); Non Pathogenic Casts 0-2; Specific Grav Ur 1.018 (1.001-1.035)
[2025-03-25] MEDS: SODIUM CHLORIDE 0.9% IV 1,000 ML 999 ML IV CONT (01:54)
[2025-03-25] MEDS: ACETAMINOPHEN 500 MG TABLET 1000 MG PO (01:55)
[2025-03-25 02:09] LABS: Hematocrit 35.6 % (37.0-47.0); Hemoglobin 11.5 g/dL (12.0-15.0); Immature Granulocyte Percent A 1.2 % (0-0.5); Lymphocytes Absolute Auto 3.18 K/mm3 (0.9-3.2); Mean Corpuscular HGB Conc 32.3 g/dl (32-36); Mean Corpuscular Hemoglobin 26.5 pg (26-34); Mean Corpuscular Volume 82.0 fl (80-100); Nucleated Red Blood Cells Absolute Auto 0.000 K/mm3 (0.0-0.012); Nucleated Red Blood Cells Perc 0.0 % (0.0-0.2); Platelet Count Result 272 k/mm3 (150-375); Red Blood Count 4.34 M/mm3 (4.2-5.4); White Blood Count 12.6 K/mm3 (4.5-10.0)
[2025-03-25] MEDS: CEPHALEXIN 500 MG CAPSULE PO (02:31)
[2025-03-25] MEDS: MAGNESIUM SULF 1 GM/D5W 100 ML 1 GM/100 ML BAG IVPB (02:31)
[2025-03-25] MEDS: PROCHLORPERAZINE EDISYLATE 10 MG/2 ML VIAL 5 MG IV PUSH (02:32)
[2025-03-25] MEDS: KETOROLAC 15 MG/ML VIAL (*BKC) IV PUSH (02:32)
[2025-03-25 02:42] LABS: Alanine Aminotransferase 53 U/L (6-35); Albumin Level 4.1 g/dL (3.5-5.1); Alkaline Phosphatase 89 U/L (38-126); Anion Gap 8 mmol/L (4-12); Aspartate Amino Transferase 35 U/L (14-36); Bilirubin,Total 0.2 mg/dL (0.2-1.3); Blood Urea Nitrogen 7 mg/dL (7-17); Calcium 9.5 mg/dL (8.4-10.2); Carbon Dioxide 23 mmol/L (22-30); Chloride 102 mmol/L (98-107); Estimated CRCL calculation 148 ml/min; Estimated Glomerular Filt Rate > 60; Glucose 97 mg/dL (65-110); Magnesium 2.0 mg/dL (1.6-2.3); Potassium 3.7 mmol/L (3.4-5.0); Sodium 133 mmol/L (137-145); Total Protein 8.0 g/dL (6.3-8.2)
[2025-03-25 03:17] VITALS: BP 132/73; PULSE 85; RESP 16; TEMP 36.6; O2SAT 100
== END 2025-03-25 03:38 | disposition home or self-care (01) ==
PROVIDERS: Emergency Provider Student in an Organized Health Care Education/Training Program
DX: O26.892 Other specified pregnancy related conditions, second trimester (principal); R51.9 Headache, unspecified; O99.012 Anemia complicating pregnancy, second trimester; D64.9 Anemia, unspecified; O99.282 Endocrine, nutritional and metabolic diseases complicating pregnancy, second trimester; E87.1 Hypo-osmolality and hyponatremia; O99.891 Other specified diseases and conditions complicating pregnancy; D72.829 Elevated white blood cell count, unspecified; R82.71 Bacteriuria; R74.01 Elevation of levels of liver transaminase levels; Z3A.18 18 weeks gestation of pregnancy
CPT/HCPCS: 36415; 80053; 81001; 83735; 85025; 87086; 96361; 96365; 96375; 99284; A9270; J0780; J1200; J1885; J3475; J7030